=== PATIENT | female | born 1960 | race Two or more races ===

== ENCOUNTER 2023-01-21 23:40 | Emergency (ER) | payer OTHER ==
[~2023-01-21] VITALS: Ht 162.6 cm; Wt 68.5 kg
[2023-01-22] MEDS ORDERED: TRULICITY3 MG/0.5 M (01:40)
[2023-01-22] MEDS ORDERED: ZITHROMAX500 MG PO (03:14)
== END 2023-01-22 | disposition home or self-care (01) ==
LOC: ER 23:40
DX: S01.421A Laceration with foreign body of right cheek and temporomandibular area, initial encounter (principal); W18.39XA Other fall on same level, initial encounter; Y93.89 Activity, other specified; Y92.018 Other place in single-family (private) house as the place of occurrence of the external cause; Z88.0 Allergy status to penicillin; Z88.6 Allergy status to analgesic agent

== ENCOUNTER 2023-01-28 12:51 | Emergency (ER) | payer OTHER ==
[~2023-01-28] VITALS: Ht 162.6 cm; Wt 68.5 kg
[~2023-01-28 12:51] MED LIST: TRULICITY3 MG/0.5 M; ZITHROMAX500 MG PO
== END 2023-01-28 13:37 | disposition home or self-care (01) ==
LOC: ER 12:51
DX: Z48.02 Encounter for removal of sutures (principal)